=== PATIENT | male | born 1940 | race Caucasian/White ===

== ENCOUNTER 2017-09-04 08:12 | Day surgery (SDC) | payer OTHER ==
[2017-09-04 09:14] VITALS: BMI 24.7
[2017-09-04] MEDS ORDERED: PROPOFOL 20 ML ONE (10:02)
[2017-09-04 10:03] VITALS: TEMP 97.8
[2017-09-04 11:53] VITALS: BP 156/86; PULSE 64
--- NOTE | 2017-09-04 13:16 | PROC ---
Endoscopy Procedure Endoscopy procedure completed. Please see scanned procedure report.
--- NOTE | 2017-09-05 12:59 | PATH ---
Surgical Pathology Report Patient Name: MAGO MCNEIL [facility]. Rec. #: [id number] /Age/Gender: 1940 (Age: 77) / M Account: [id number] Location: [facility]-ENDOSCOPY Taken: 09/04/2017 Received: 09/04/2017 Reported: 09/05/2017 Physicians: Laith Dupont M.D. Specimen(s) Received A: BX 2ND PORTION DUODENUM B: BX ANTRUM/BODY Clinical History Colon surveillance Postoperative diagnosis: Gastritis, duodenitis, diverticulosis, internal hemorrhoids Final Diagnosis A. SECOND PORTION DUODENUM, BIOPSY: DUODENAL MUCOSA WITH MILD CHRONIC DUODENITIS. B. ANTRUM/BODY, BIOPSY: GASTRIC MUCOSA WITH MILD CHRONIC GASTRITIS. IMMUNOSTAIN IS NEGATIVE FOR H. PYLORI ORGANISMS. Electronically Signed Harsh De La Fuente M.D. Gross Description A. Received in formalin, labeled "biopsy second portion of duodenum" are 3 raya, irregular portions of soft tissue ranging from 0.1-0.2 cm. in greatest dimension. The specimens are submitted in toto in one cassette. B. Received in formalin, labeled "biopsy antrum/body" are 3 raya, irregular portions of soft tissue ranging from 0.2-0.3 cm. in greatest dimension. The specimens are submitted in toto in one cassette. 09/04/201709/04/2017
== END 2017-09-04 11:00 | disposition home or self-care (01) ==
LOC: JASU-ENDO 08:12
PROVIDERS: ATTEND Internal Medicine Gastroenterology
PROC: 0DB68ZX Excision of Stomach, Via Natural or Artificial Opening Endoscopic, Diagnostic (ICD-10-PCS; 2017-09-04)
PROC: 0DB98ZX Excision of Duodenum, Via Natural or Artificial Opening Endoscopic, Diagnostic (ICD-10-PCS; principal; 2017-09-04 09:30)
DX: E61.1 Iron deficiency (principal); K29.00 Acute gastritis without bleeding; E11.9 Type 2 diabetes mellitus without complications; I10 Essential (primary) hypertension
CPT/HCPCS: 88305-TC; 88342-TC